=== PATIENT | female | born 1985 | race Caucasian/White ===

== ENCOUNTER 2024-02-24 08:44 | Day surgery (SDC) | payer OTHER ==
[2024-02-20 12:23] VITALS: BMI 34.7
[2024-02-24] MEDS ORDERED: Midazolam HCl 2 mg/2 ml Vial ONE (09:21)
[2024-02-24] MEDS ORDERED: Famotidine/PF 20 mg/2ml Vial ONE (09:22)
[2024-02-24] MEDS ORDERED: Sodium Chloride 0.9% 100 ML ONE (09:28)
[2024-02-24] MEDS ORDERED: CEFAZOLIN 2 GM VIAL ONE (09:28)
[2024-02-24] MEDS ORDERED: Dexamethasone 4 mg/ml Vial ONE (09:29)
[2024-02-24] MEDS ORDERED: Ondansetron PF 4 MG/2 ML Vial ONE ×2 (09:29→12:00)
[2024-02-24] MEDS ORDERED: fentaNYL PF 100 MCG/2 ML SYRINGE ONE (09:30)
[2024-02-24] MEDS ORDERED: Lidocaine 2% PF 5 ML VIAL ONE (09:30)
[2024-02-24] MEDS ORDERED: PROPOFOL 40 ML ONE (09:30)
[2024-02-24] MEDS ORDERED: Bacitracin Zinc Ointment 30 gm TUBE ONE (10:09)
[2024-02-24] MEDS ORDERED: Bupivacaine PF 0.5% 30 ML VIAL ONE (10:10)
[2024-02-24] MEDS ORDERED: Ketorolac Tromethamine 30 MG (1 mL) VIAL ONE (10:55)
[2024-02-24] MEDS ORDERED: fentaNYL 50 mcg/mL 1 mL Vial ONE ×2 (11:06→11:45)
[2024-02-24] MEDS ORDERED: Promethazine HCl 25 MG/ML VIAL ONE (12:13)
== END 2024-02-24 13:34 | disposition home or self-care (01) ==
LOC: SDC 08:44
PROVIDERS: ATTEND Orthopaedic Surgery Hand Surgery
PROC: 01N50ZZ Release Median Nerve, Open Approach (ICD-10-PCS; principal; 2024-02-24)
DX: G56.03 Carpal tunnel syndrome, bilateral upper limbs (principal); G56.13 Other lesions of median nerve, bilateral upper limbs; G43.909 Migraine, unspecified, not intractable, without status migrainosus; K21.9 Gastro-esophageal reflux disease without esophagitis; F17.200 Nicotine dependence, unspecified, uncomplicated; Z98.890 Other specified postprocedural states; Z79.899 Other long term (current) drug therapy
CPT/HCPCS: A6223; J0665; J1100; J1885; J2001; J2250; J2405; J2550; J2704; J3010; J3490

== ENCOUNTER 2024-04-01 09:57 | Outpatient (CLI) | payer OTHER ==
[2024-04-01 11:11] LABS: #Basophils 0.06 10x3/uL (0.0-0.2); %Basophils 0.6 % (0.0-1.0); %Eosinophils 2.8 % (0.0-10.0); %Lymphocytes 39.6 % (21.0-51.0); %Monocytes 8.5 % (0.0-10.0); %Neutrophils 48.2 % (42.0-75.0); Hematocrit 39.3 % (36.0-47.0); Hemoglobin 12.2 g/dL (12.0-16.0); Mean Corpuscular Hemoglobin 26.7 pg (27.0-31.0); Mean Platelet Volume 8.6 fL (7.4-10.4); Platelet Count 418 10x3/uL (130-400); RBC Distribution Width 13.9 % (11.5-14.5); Red Blood Cell (RBC) Count 4.57 mill/uL (4.20-5.40)
[2024-04-01 11:23] LABS: BHCG - Serum Negative (NEGATIVE); Pregs Control Background? CLEAR/WHITE (CLR/WHITE); Pregs Control Bar Appear? YES (CONTROL BAR)
== END 2024-04-01 09:58 | disposition home or self-care (01) ==
LOC: LABBT 09:57
PROVIDERS: ATTEND Orthopaedic Surgery Hand Surgery
DX: Z01.812 Encounter for preprocedural laboratory examination (principal); G56.03 Carpal tunnel syndrome, bilateral upper limbs
CPT/HCPCS: 84703; 85025